=== PATIENT | male | born 1955 | race Caucasian/White ===

== ENCOUNTER 2019-10-14 12:32 | Observation (INO) | payer OTHER ==
[~2019-10-14] VITALS: Ht 190.5 cm; Wt 96.2 kg
[~2019-10-14 12:32] MED LIST: DAYPRO600 M1 PO; ROBAXIN750 MG PO
[2019-10-14 12:56] LABS: BASO % 0.6 % (0.0-1.0); EOS # 0.1 10*3/uL (0.0-0.4); EOS % 1.1 % (1.0-4.0); LYMPH # 2.8 10*3/uL (1.3-4.4); LYMPH % 39.7 % (27.0-41.0); MEAN CELL VOLUME 95.3 fl (80.0-94.0); MEAN CORPUSCULAR HGB 31.6 pg (27.0-31.0); MEAN CORPUSCULAR HGB CONC 33.1 g/dl (33.0-37.0); MEAN PLATELET VOLUME 9.4 fl (9.6-12.3); MONO # 0.5 10*3/uL (0.1-1.0); MONO % 7.1 % (3.0-9.0); NEUT # 3.6 10*3/uL (2.3-7.9); NEUT % 51.2 % (47.0-73.0); PLATELET COUNT AUTOMATED 255 10*3/uL (130-400); RED BLOOD COUNT 4.72 10*6/uL (4.50-5.90); RED CELL DISTRI WIDTH 13.3 % (0-14.5); WHITE BLOOD COUNT 7.1 10*3/uL (4.8-10.8)
[2019-10-14 13:07] LABS: ACT PARTIAL THROMBO TIME 25.3 SECONDS (20.0-32.1)
[2019-10-14 13:13] LABS: ALBUMIN 3.8 gm/dl (3.1-4.5); ALKALINE PHOSPHATASE 59 U/L (45-117); BUN 17 mg/dl (7-24); CHLORIDE 106 mmol/L (98-107); CREATININE 1.12 mg/dL (0.70-1.30); POTASSIUM 4.5 mmol/L (3.5-5.1); SGOT/AST 10 IU/L (3-35); SGPT/ALT 22 U/L (12-78); SODIUM 139 mmol/L (136-145); TOTAL PROTEIN 7.2 gm/dL (6.4-8.2)
[2019-10-14 13:24] LABS: TROPONIN I < 0.015 ng/ml (<0.045)
[2019-10-14] MEDS ORDERED: SEROQUEL XR150 MG PO (14:05)
[2019-10-14] MEDS ORDERED: CYMBALTA30 MG PO (14:06)
[2019-10-14 14:10] VITALS: BP 120/84
[2019-10-14] MEDS ORDERED: SEROQUEL50 MG PO (14:44)
[2019-10-14 16:08] VITALS: BP 124/81
--- NOTE | 2019-10-14 16:09 | NUR ---
PT RESTING IN BED NO CHANGE IN PAIN STATUS
[2019-10-14 16:31] VITALS: BP 131/89
--- NOTE | 2019-10-14 16:51 | NUR ---
A 64, admitted to , under the services of TA Beasley DO with a diagnosis of . Chief complaint is CHEST PAIN. Patient arrived via ambulatory from ER. Monitor applied. Initial assessment completed. Vital signs taken and recorded. TA BEASLEY DO notified of admission to the unit. Orders received. See assessment for past medical history, medications and allergies. Patient and/or family oriented to unit. [facility]. Clothing/patient valuable form completed. CANDACE SILVA
--- NOTE | 2019-10-14 17:30 | NUR ---
SPOKE WITH CARDIOLOGY ANSWERING SERVICE REGARDING CONSULT.
--- NOTE | 2019-10-14 19:44 | NUR ---
PT AWAKE IN BED WATCHING TV. PT STATES HE IS STILL HAVING A DULL ACHE IN L SIDE OF CHEST WHICH HE RATES 3/10. DENIES ANY NEEDS FOR PAIN MEDICATION AT THIS TIME. RN DISCUSSED PLAN OF CARE AND NPO STATUS AFTER MIDNIGHT. PT AWARE NO TESTING YET ORDERED, BUT THIS IS A JUST IN CASE PRECAUTION. PT VERBALIZES UNDERSTANDING. PT STATES HE IS STILL WAITING ON HIS DINNER THAT HE ORDERED. WILL CALL DIETARY TO RETRIEVE FOOD. PT DENIES ANY OTHER NEEDS.
[2019-10-14 20:00] VITALS: BP 129/92
--- NOTE | 2019-10-14 20:14 | NUR ---
FINALLY GOT AHOLD OF DIETARY. AWARE OF INCIDENT. REPLACEMENT COLD CUT TRAY ORDERED.
--- NOTE | 2019-10-14 21:20 | NUR ---
AWARE OF MED REC UP TO DATE.
[2019-10-15] VITALS: BP 129/78
[2019-10-15 06:25] LABS: BASO % 0.5 % (0.0-1.0); EOS # 0.1 10*3/uL (0.0-0.4); EOS % 1.8 % (1.0-4.0); HEMATOCRIT 43.2 % (42.0-52.0); LYMPH # 2.9 10*3/uL (1.3-4.4); LYMPH % 43.6 % (27.0-41.0); MEAN CELL VOLUME 95.2 fl (80.0-94.0); MEAN CORPUSCULAR HGB 32.2 pg (27.0-31.0); MEAN CORPUSCULAR HGB CONC 33.8 g/dl (33.0-37.0); MEAN PLATELET VOLUME 9.6 fl (9.6-12.3); MONO # 0.6 10*3/uL (0.1-1.0); MONO % 9.4 % (3.0-9.0); NEUT % 44.4 % (47.0-73.0); PLATELET COUNT AUTOMATED 238 10*3/uL (130-400); RED BLOOD COUNT 4.54 10*6/uL (4.50-5.90); RED CELL DISTRI WIDTH 13.4 % (0-14.5); WHITE BLOOD COUNT 6.6 10*3/uL (4.8-10.8)
[2019-10-15 06:44] LABS: ALBUMIN 3.4 gm/dl (3.1-4.5); BUN 18 mg/dl (7-24); CHLORIDE 107 mmol/L (98-107); CREATININE 1.02 mg/dL (0.70-1.30); HDL CHOLESTEROL 51 mg/dl (40-60); POTASSIUM 4.2 mmol/L (3.5-5.1); SGOT/AST 11 IU/L (3-35); SODIUM 140 mmol/L (136-145); TRIGLYCERIDES 208 mg/dl (<150); VLDL CHOLESTEROL 42 mg/dL (6-40)
[2019-10-15 06:50] LABS: ALKALINE PHOSPHATASE 52 U/L (45-117); CHOLESTEROL 265 mg/dL (<200); FREE T4 1.03 ng/dl (0.76-1.46); LDL CHOLESTEROL 172 mg/dL (9-159); SGPT/ALT 25 U/L (12-78); TOTAL PROTEIN 6.6 gm/dL (6.4-8.2)
[2019-10-15 07:15] LABS: VITAMIN D, 25-HYDROXY 38.3 ng/mL (30-100)
[2019-10-15 08:00] VITALS: BP 128/80
--- NOTE | 2019-10-15 08:00 | NUR ---
PATIENT RESTING IN BED ON ROOM AIR. C/O L ARM PRESSURE LSIDE CHEST INTO BACK.
--- NOTE | 2019-10-15 08:30 | NUR ---
MARCO HAS ROUNDED.
--- NOTE | 2019-10-15 09:00 | NUR ---
Hazard Mitigation Officer in to talk to patient. Patient states lives at home with . There are no steps in the home. Physician: frannie torres Pharmacy: none Home health services: none Patient's level of ADLs: INDEPENDENT Patient has working utilities: all working DME: none Follow-up physician's appointment after d/c: will be made by hospitalist nurse director upon discharge Does patient want to access PORTAL?: no Discharge plan discussed with patient, he states he lives at home with , he is independent in adls and ambulation, works, drives, he states he will return home when discharged and denies any home needs, family will transport upon discharge. FAMILIA ANAND
--- NOTE | 2019-10-15 11:23 | NUR ---
ENSEMBLE MEMBER HERE AND HAS ROUNDED ON PATIENT. PLAN FOR TRANSFER IN AM 8/13 FOR HEART CATH.
[2019-10-15] MEDS ORDERED: CLOPIDOGREL75 MG PO (11:54)
[2019-10-15] MEDS ORDERED: ATORVASTATIN CA80 M1 PO (11:54)
[2019-10-15] MEDS ORDERED: LOPRESSOR25 MG PO (11:54)
[2019-10-15 12:00] VITALS: BP 126/81
--- NOTE | 2019-10-15 12:15 | NUR ---
HEPARIN GTT STARTED PER PROTOCOL AND ORDER. PATIENT AWARE AND UNDERSTANDS TRANSFER IN MORNING.
--- NOTE | 2019-10-15 14:58 | NUR ---
MEDICATED WITH TYLENOL PER ORDER AND REQUEST FOR HEADACHE.
--- NOTE | 2019-10-15 15:30 | NUR ---
TYLENOL HELPED HEADACHE STILL HAS PRESSURE IN BACK L ARM.
[2019-10-15 16:00] VITALS: BP 117/85
--- NOTE | 2019-10-15 16:49 | NUR ---
MEDICATED WITH PRN MORPHINE PER ORDER AND REQUEST.
--- NOTE | 2019-10-15 18:50 | NUR ---
PTT IS 70, NO CHANGE PER PROTOCOL NEXT PTT 0630.
--- NOTE | 2019-10-15 19:35 | NUR ---
PT AWAKE SITTING UP IN BED TALKING ON PHONE. HEPARIN GTT INFUSING PER ORDER. DENIES ANY NEEDS. WILL MONITOR. CALL LIGHT IN REACH.
[2019-10-15 20:00] VITALS: BP 125/77
--- NOTE | 2019-10-15 21:47 | NUR ---
SCHEDULED MEDS GIVEN PER ORDER. [facility]
--- NOTE | 2019-10-15 23:25 | NUR ---
PO TYLENOL ADMINISTERED PER ORDER FOR C/O HEADACHE. WILL MONITOR. CALL LIGHT IN REACH.
[2019-10-16] VITALS: BP 120/79
--- NOTE | 2019-10-16 02:06 | NUR ---
PT ASLEEP IN BED. NO S/S OF DISTRESS NOTED.
--- NOTE | 2019-10-16 04:00 | NUR ---
PT ASLEEP IN BED. NO S/S OF DISTRESS NOTED. WILL MONITOR. CALL LIGHT IN REACH.
--- NOTE | 2019-10-16 05:40 | NUR ---
APTT 78.6. IV HEPARIN STOPPED FOR 1 HR PER POLICY. NOTIFIED OF RESULT. DISCHARGE PAPERS SIGNED/DISCUSSED WITH PATIENT. COPY OF MATERIALS GIVEN TO PATIENT.
--- NOTE | 2019-10-16 06:40 | NUR ---
IV HEPARIN GTT RESTARTED. RATE DECREASED BY 3 UNITS/KG/HR. NOW RUNNING AT 9 UNITS/KG/HR, OR 8.6 CC/HR. APTT ORDERED FOR 1140, ALTHOUGH PT WILL MOST LIKELY NOT BE HERE HE IS BEING TRANSFERRED TO [facility] [place] FOR HEART CATH.
--- NOTE | 2019-10-16 07:47 | NUR ---
PATIENT TO BE TRANSFERED TO [facility] FOR HEART CATH.
--- NOTE | 2019-10-16 08:50 | NUR ---
PATIENT TAKEN VIA AMBULANCE.
== END 2019-10-16 09:45 | disposition short-term general hospital (02) ==
LOC: ED 12:32 → EDHOLD 14:38 → 4E 14:48
PROVIDERS: Emergency Medicine; Registered Nurse; ADMIT Family Medicine
DX: R07.89 Other chest pain (principal); I21.4 Non-ST elevation (NSTEMI) myocardial infarction; R42 Dizziness and giddiness; R11.0 Nausea; R73.9 Hyperglycemia, unspecified; D75.89 Other specified diseases of blood and blood-forming organs; F43.10 Post-traumatic stress disorder, unspecified; E78.00 Pure hypercholesterolemia, unspecified

== ENCOUNTER → 2019-11-07 | Outpatient (CLI) | payer OTHER ==
[~2019-11-07] MED LIST changes: +ATORVASTATIN CA80 M1 PO; +CLOPIDOGREL75 MG PO; +CYMBALTA30 MG PO; +LOPRESSOR25 MG PO; +SEROQUEL XR150 MG PO; +SEROQUEL50 MG PO
== END | disposition home or self-care (01) ==
LOC: CT 12:29
PROVIDERS: ATTEND Nurse Practitioner Family
DX: I67.82 Cerebral ischemia (principal); G44.52 New daily persistent headache (NDPH); R42 Dizziness and giddiness

== ENCOUNTER → 2020-02-14 | Outpatient (CLI) | payer OTHER ==
[~2020-02-14] MED LIST changes: +ASPIRIN ADULT L81 M1 PO; +MIDODRINE HCL10 MG PO; +XARE20MG PO
== END | disposition home or self-care (01) ==
LOC: COVID19 11:21
PROVIDERS: ATTEND Internal Medicine
DX: U07.1 COVID-19 (principal)

== ENCOUNTER 2020-02-22 09:47 | Inpatient (IN) | payer OTHER ==
[~2020-02-22] VITALS: Ht 188 cm; Wt 97.1 kg
[~2020-02-22 09:47] MED LIST changes: -ASPIRIN ADULT L81 M1 PO; -MIDODRINE HCL10 MG PO; -XARE20MG PO
[2020-02-22 09:57] VITALS: BP 101/53
[2020-02-22 10:43] LABS: HEMATOCRIT 38.2 % (42.0-52.0); LYMPH # 1.4 10*3/uL (1.3-4.4); LYMPH % 22.4 % (27.0-41.0); MEAN CELL VOLUME 91.6 fl (80.0-94.0); MEAN CORPUSCULAR HGB 31.2 pg (27.0-31.0); MEAN PLATELET VOLUME 10.5 fl (9.6-12.3); MONO # 0.4 10*3/uL (0.1-1.0); MONO % 6.1 % (3.0-9.0); NEUT # 4.5 10*3/uL (2.3-7.9); NEUT % 70.9 % (47.0-73.0); PLATELET COUNT AUTOMATED 274 10*3/uL (130-400); RED BLOOD COUNT 4.17 10*6/uL (4.50-5.90); RED CELL DISTRI WIDTH 12.6 % (0-14.5); WHITE BLOOD COUNT 6.4 10*3/uL (4.8-10.8)
[2020-02-22 10:59] LABS: ACT PARTIAL THROMBO TIME 32.4 SECONDS (20.0-32.1)
[2020-02-22 11:01] LABS: ALKALINE PHOSPHATASE 124 U/L (45-117); BUN 12 mg/dl (7-24); CHLORIDE 100 mmol/L (98-107); CPK 126 U/L (39-308); CREATININE 1.13 mg/dL (0.70-1.30); LDH 395 U/L (87-241); POTASSIUM 3.9 mmol/L (3.5-5.1); SGOT/AST 55 IU/L (3-35); SGPT/ALT 68 U/L (12-78); SODIUM 131 mmol/L (136-145)
[2020-02-22 11:02] LABS: TROPONIN I < 0.015 ng/ml (<0.045)
[2020-02-22 11:16] VITALS: BP 112/67
[2020-02-22 11:35] LABS: ABG BASE EXCESS 1.7 mmol/L (-2.0-2.0); ARTERIAL BLOOD GAS PH 7.459 (7.35-7.45)
[2020-02-22] MEDS ORDERED: MIDODRINE HCL10 MG PO (11:39)
[2020-02-22] MEDS ORDERED: ASPIRIN ADULT L81 M1 PO (11:42)
[2020-02-22 13:14] LABS: BILIRUBIN Negative (Negative); BLOOD Negative (Negative); CLARITY Cloudy (Clear); COLOR Yellow (Yellow); GLUCOSE Negative (Negative); KETONE Trace (Negative); LEUKO ESTERASE Negative (Negative); NITRITE Negative (Negative); SPECIFIC GRAVITY 1.015 (1.001-1.030); UROBILINOGEN 0.2 E.U./dl (0.0-1.0)
--- NOTE | 2020-02-22 13:36 | NUR ---
PT PROVIDED A LUNCH TRAY AND WATHING T.V PT W/SAFETY PRECAUTIONS INTACT AND CALL LIGHT WITHIN REACH,NO ADDITIONAL COMPLAINTS VOICED.
[2020-02-22 13:39] VITALS: BP 117/69
[2020-02-22 13:41] LABS: BACTERIA TRACE
--- NOTE | 2020-02-22 13:52 | NUR ---
DR. BROWNING IN TO EXAM ROOM 2013 TO EVALUATE PT @ THIS TIME.
[2020-02-22 14:30] VITALS: BP 144/66
--- NOTE | 2020-02-22 14:30 | NUR ---
A 64, admitted to , under the services of ARACELI Sebastian DO with a diagnosis of COVID-19, RESPIRATORY FAILURE. Chief complaint is SHORTNESS OF BREATH, DIZZINESS, LIGHTHEADED. Patient arrived via bed from ER. Monitor applied. Initial assessment completed. Vital signs taken and recorded. ARACELI SEBASTIAN DO notified of admission to the unit. Orders received. See assessment for past medical history, medications and allergies. Patient and/or family oriented to unit. [facility]. Clothing/patient valuable form completed. GOKUL MENDENHALL
[2020-02-22 16:00] VITALS: BP 144/66
--- NOTE | 2020-02-22 17:20 | NUR ---
PATIENT REMOVED OXYGEN TO USE BATHROOM. CHECKED POX ON ROOM AIR AFTER AMBULATING AND IT IS 83%. EDUCATED ON PATIENT IMPORTANCE OF WEARING OXYGEN AT ALL TIMES RIGHT NOW BECAUSE OF HYPOXIA.
[2020-02-22 20:00] VITALS: BP 131/68
--- NOTE | 2020-02-22 22:55 | NUR ---
Pt cannot tolerate the BiPap at all. Anxiety of the machines function. Made it unbearable to him. Pt set up with a high flow NC on 8L. SPO2 94%. Nurse aware.
[2020-02-23] VITALS: BP 110/52
--- NOTE | 2020-02-23 00:47 | NUR ---
SLEEPING, AWAKES EASILY. LYING ON RIGHT SIDE. DENIES SHORTNESS OF BREATH. NC 8L.
[2020-02-23 06:36] LABS: FREE T4 1.21 ng/dl (0.76-1.46)
[2020-02-23 06:42] LABS: THYROID STIM HORMONE (HS) 0.867 uIU/ml (0.358-4.75)
[2020-02-23 07:29] LABS: VITAMIN D, 25-HYDROXY 51.1 ng/mL (30-100)
[2020-02-23 08:00] VITALS: BP 108/56
--- NOTE | 2020-02-23 08:00 | NUR ---
PT AWAKE, ALERT AND ORIENTED. NO STATED COMPLAINTS AT THIS TIME. PT DENIES PAIN. NO SOB NOTED AT REST. NO S/S OF DISTRESS NOTED. PT CAN REPOSITION SELF AND IS ENCOURAGED TO DO SO. EDUCATION PROVIDED REGARDING SELF PRONING. BED IN LOWEST LOCKED POSITION, CALL LIGHT WITHIN REACH. WILL CONTINUE TO MONITOR.
[2020-02-23 08:02] LABS: ACT PARTIAL THROMBO TIME 27.6 SECONDS (20.0-32.1); INTERNATIONAL NORM RATIO 0.9 (2.0-3.5)
--- NOTE | 2020-02-23 08:23 | NUR ---
Dairy Laboratory Technician in to talk to patient. Patient states lives at HOME with /SON. There are 12 steps in the home. Physician: LYNNE CARABALLO [facility]acy: [facility] health services: NONE Patient's level of ADLs: INDEPENDENT Patient has working utilities: YES DME: NONE Follow-up physician's appointment after d/c: WILL BE MADE BY RN HOSPITALIST COORDINATOR AT DISCHARGE. Does patient want to access PORTAL?: NO Discharge plan : PATIENT STATES HE RESIDES AT HOME WITH AND SON. PATIENT STATES HE IS INDEPENDENT IN ADLS/IADLS. PATIENT DRIVES AND WORKS. PATIENT HAS NO OXYGEN AT HOME AND IS ON 8L OXYGEN IN THIS FACILITY. PATIENT STATES AT DISCHARGE HE WILL RETURN HOME. GIANCARLO LANDA
--- NOTE | 2020-02-23 08:50 | NUR ---
PATIENT STATES HE IS UNABLE TO WEAR BIPAP, ENCOURAGED PATIENT TO SELF PRONE MUCH POSSIBLE.
[2020-02-23 09:06] LABS: ABG BASE EXCESS 1.9 mmol/L (-2.0-2.0); ARTERIAL BLOOD GAS PH 7.472 (7.35-7.45)
[2020-02-23 12:00] VITALS: BP 106/62
--- NOTE | 2020-02-23 12:20 | NUR ---
DR. MORE NOTIFIED OF CONSULT
[2020-02-23 16:00] VITALS: BP 104/55
--- NOTE | 2020-02-23 16:28 | NUR ---
PATIENT DESATURATING TO MID 80S. HI BELL NC INCREASED TO 10 L, SPO2 91%. PATIENT REFUSES TO WEAR BIPAP, UNIT PULLED FROM PATIENTS ROOM PER DR BROWNING'S ORDER. ENCOURAGED PATIENT TO SELF PRONE.
[2020-02-23 19:38] LABS: ABG BASE EXCESS 0.8 mmol/L (-2.0-2.0); ARTERIAL BLOOD GAS PH 7.454 (7.35-7.45)
[2020-02-23 20:00] VITALS: BP 106/51
--- NOTE | 2020-02-23 21:07 | NUR ---
DR BROWNING CALLED IN WANTING AN UPDATE ON PATIENT. MADE AWARE OF PATIENT BEING 91% ON 15LITERS AND PATIENT WAS ENCOURAGED TO PRONE. PATIENT NOW 95% ON [address] BROWNING STATES HE IS WORRIED ABOUT THIS PATIENT AND WANTS HIM TRANSFERRED TO THE ICU. NAOMI SITE SURVEYOR MADE AWARE.
--- NOTE | 2020-02-23 23:45 | NUR ---
STILL WAITING FOR AVAILABILITY FOR TRANSFER TO [facility]
--- NOTE | 2020-02-23 23:55 | NUR ---
PATIENT TRANSFERRED TO [facility] AT THIS TIME
[2020-02-24] VITALS: BP 93/72
--- NOTE | 2020-02-24 00:16 | NUR ---
PT. RECEIVED FROM , VS STABLE. TEMP [id number], 93/72. PT. WARM AND DRY AND ALERT AND ORIENTED x3, PLEASANT AND COOPERATIVE. JOVITA ZAVALA RN
--- NOTE | 2020-02-24 01:05 | NUR ---
PT. REFUSING TO WEAR BIPAP. RESP UP TO TRY BIPAP ON PATIENT, PT. STATED HE WOULD NOT WEAR IT AND TO TAKE IT OUT OF ROOM. ATTEMPTED TO EXPLAIN NEED TO WEAR BIPAP, PT. REMAINS ON 15L HFNC. JOVITA ZAVALA RN
[2020-02-24 04:00] VITALS: BP 100/52
[2020-02-24 06:50] LABS: BASO % 0.2 % (0.0-1.0); HEMATOCRIT 37.9 % (42.0-52.0); LYMPH # 1.7 10*3/uL (1.3-4.4); LYMPH % 13.5 % (27.0-41.0); MEAN CORPUSCULAR HGB 31.5 pg (27.0-31.0); MEAN CORPUSCULAR HGB CONC 33.5 g/dl (33.0-37.0); MEAN PLATELET VOLUME 10.3 fl (9.6-12.3); MONO # 0.6 10*3/uL (0.1-1.0); MONO % 4.7 % (3.0-9.0); NEUT # 10.2 10*3/uL (2.3-7.9); NEUT % 80.8 % (47.0-73.0); RED BLOOD COUNT 4.03 10*6/uL (4.50-5.90); RED CELL DISTRI WIDTH 12.9 % (0-14.5); WHITE BLOOD COUNT 12.6 10*3/uL (4.8-10.8)
[2020-02-24 07:00] LABS: ALBUMIN 2.7 gm/dl (3.1-4.5); BUN 18 mg/dl (7-24); CHLORIDE 102 mmol/L (98-107); CREATININE 0.93 mg/dL (0.70-1.30); POTASSIUM 4.4 mmol/L (3.5-5.1); SGOT/AST 222 IU/L (3-35); SGPT/ALT 251 U/L (12-78); SODIUM 136 mmol/L (136-145)
[2020-02-24 07:03] LABS: ALKALINE PHOSPHATASE 219 U/L (45-117); LDH 537 U/L (87-241)
[2020-02-24 07:05] LABS: PLATELET COUNT AUTOMATED 392 10*3/uL (130-400)
[2020-02-24 07:15] LABS: CPK 93 U/L (39-308)
[2020-02-24 08:00] VITALS: BP 108/68
[2020-02-24 09:31] LABS: ABG BASE EXCESS 2.2 mmol/L (-2.0-2.0); ARTERIAL BLOOD GAS PH 7.473 (7.35-7.45)
--- NOTE | 2020-02-24 10:21 | NUR ---
MEDICATED WITH TYLENOL FOR COMPLAINTS OF A HEADACHE AT THIS TIME. RN WILL MONITOR FOR EFFECTIVENESS
--- NOTE | 2020-02-24 11:33 | NUR ---
DR BROWNING IN TO SEE PATIENT, CARE DISCUSSED WITH
[2020-02-24 12:00] VITALS: BP 116/73
--- NOTE | 2020-02-24 13:40 | NUR ---
PATIENT AGREED TO BIPAP AFTER RECIEVEING ATIVAN TO HELP HIM RELAX. ABG TO BE DRAWN IN 2 HOURS
--- NOTE | 2020-02-24 14:20 | NUR ---
PATIENT HAS RIPPED OFF BIPAP AND IS STANDING AT THE SIDE OF THE BED URINATING ON THE FLOOR. PATIENT ASSISTED BACK TO BED. REFUSING TO PUT BIPAP BACK ONN. RN WILL CONTINUE TO MONITOR
--- NOTE | 2020-02-24 15:42 | NUR ---
PLACED PT ON BIPAP 16/12//50%. PT TOLERATED WELL. SPO2 95%, HR 70, RR 12
[2020-02-24 16:00] VITALS: BP 117/76
--- NOTE | 2020-02-24 17:00 | NUR ---
PATIENT PLACED ON BIPAP PER REQUEST. RN WILL CONTINUE TO MONITOR
--- NOTE | 2020-02-24 17:55 | NUR ---
placed pt back on bipap. tolerating well, spo2 97%
[2020-02-24 20:00] VITALS: BP 100/66
--- NOTE | 2020-02-24 21:20 | NUR ---
Patient states he can wear the bipap if he had ativan like he did this afternoon. Spoke with Dr. Ramesh and a new order was received for 0.5 of ativan.
--- NOTE | 2020-02-24 21:45 | NUR ---
Patient given ativan and placed on bipap. Will monitor.
--- NOTE | 2020-02-24 22:56 | NUR ---
Patient has been resting on bipap with no signs of distress. Will continue to monitor.
[2020-02-25] VITALS: BP 110/70
--- NOTE | 2020-02-25 | NUR ---
Patient pulled off bipap and stated hes done wearing it for the night. Educated patient on wearing it, and he insists that he is not wearing the rest of the night. Patient placed back on 15L high flow nasal cannula.
[2020-02-25 04:00] VITALS: BP 95/58
--- NOTE | 2020-02-25 04:20 | NUR ---
Critical lab result called to Dr. Luciano. Awaiting new orders.
[2020-02-25 06:08] LABS: ALBUMIN 2.8 gm/dl (3.1-4.5); BUN 24 mg/dl (7-24); CHLORIDE 105 mmol/L (98-107); CREATININE 0.98 mg/dL (0.70-1.30); POTASSIUM 4.6 mmol/L (3.5-5.1); SGOT/AST 188 IU/L (3-35); SGPT/ALT 368 U/L (12-78); SODIUM 136 mmol/L (136-145); TOTAL PROTEIN 7.2 gm/dL (6.4-8.2)
[2020-02-25 06:13] LABS: ALKALINE PHOSPHATASE 274 U/L (45-117); LDH 484 U/L (87-241)
[2020-02-25 06:18] LABS: CPK 53 U/L (39-308)
[2020-02-25 06:24] LABS: BASO % 0.2 % (0.0-1.0); HEMATOCRIT 39.1 % (42.0-52.0); LYMPH # 1.4 10*3/uL (1.3-4.4); LYMPH % 14.4 % (27.0-41.0); MEAN CELL VOLUME 93.3 fl (80.0-94.0); MEAN CORPUSCULAR HGB 30.8 pg (27.0-31.0); MEAN PLATELET VOLUME 10.2 fl (9.6-12.3); MONO # 0.5 10*3/uL (0.1-1.0); MONO % 5.3 % (3.0-9.0); NEUT # 7.8 10*3/uL (2.3-7.9); NEUT % 79.3 % (47.0-73.0); PLATELET COUNT AUTOMATED 457 10*3/uL (130-400); RED BLOOD COUNT 4.19 10*6/uL (4.50-5.90); WHITE BLOOD COUNT 9.8 10*3/uL (4.8-10.8)
[2020-02-25 08:00] VITALS: BP 104/61
[2020-02-25 09:00] LABS: ABG BASE EXCESS 2.4 mmol/L (-2.0-2.0); ARTERIAL BLOOD GAS PH 7.455 (7.35-7.45)
[2020-02-25 12:00] VITALS: BP 105/71
--- NOTE | 2020-02-25 12:35 | NUR ---
DR. Villalpando in to [facility].
--- NOTE | 2020-02-25 12:36 | NUR ---
dr. Ramesh in to [facility].
[2020-02-25 16:00] VITALS: BP 114/66
[2020-02-25 20:00] VITALS: BP 109/56
[2020-02-26] VITALS: BP 135/78
[2020-02-26 04:00] VITALS: BP 109/59
[2020-02-26 06:09] LABS: ALBUMIN 2.5 gm/dl (3.1-4.5); BUN 20 mg/dl (7-24); CHLORIDE 106 mmol/L (98-107); CREATININE 0.87 mg/dL (0.70-1.30); LDH 386 U/L (87-241); POTASSIUM 4.2 mmol/L (3.5-5.1); SGOT/AST 70 IU/L (3-35); SGPT/ALT 231 U/L (12-78); SODIUM 137 mmol/L (136-145); TOTAL PROTEIN 6.1 gm/dL (6.4-8.2)
[2020-02-26 06:10] LABS: ALKALINE PHOSPHATASE 208 U/L (45-117)
[2020-02-26 06:12] LABS: BASO % 0.3 % (0.0-1.0); CPK 39 U/L (39-308); EOS % 0.2 % (1.0-4.0); HEMATOCRIT 37.6 % (42.0-52.0); MEAN CELL VOLUME 92.4 fl (80.0-94.0); MEAN CORPUSCULAR HGB 30.7 pg (27.0-31.0); MEAN CORPUSCULAR HGB CONC 33.2 g/dl (33.0-37.0); MEAN PLATELET VOLUME 10.1 fl (9.6-12.3); MONO # 0.7 10*3/uL (0.1-1.0); MONO % 6.2 % (3.0-9.0); NEUT # 8.2 10*3/uL (2.3-7.9); NEUT % 73.8 % (47.0-73.0); PLATELET COUNT AUTOMATED 493 10*3/uL (130-400); RED BLOOD COUNT 4.07 10*6/uL (4.50-5.90); RED CELL DISTRI WIDTH 12.7 % (0-14.5)
[2020-02-26 08:00] VITALS: BP 109/59
[2020-02-26 08:23] LABS: ABG BASE EXCESS 3.4 mmol/L (-2.0-2.0); ARTERIAL BLOOD GAS PH 7.457 (7.35-7.45)
--- NOTE | 2020-02-26 10:30 | NUR ---
Requests O2 be decreased. HF to 10l.. SAT remaining 92-94%.
[2020-02-26 12:00] VITALS: BP 92/52
--- NOTE | 2020-02-26 13:12 | NUR ---
Dr. Ramesh in to [facility]. [place] for transfer to [facility] . dr. Vizcaino and agreeable to transfer to [facility]. Family called in and update was given.
--- NOTE | 2020-02-26 15:00 | NUR ---
ASSUMED CARE OF PT. PT VOICES NO COMPLAINTS. CALL LIGHT IN REACH
[2020-02-26 15:35] LABS: ABG BASE EXCESS 1.2 mmol/L (-2.0-2.0); ARTERIAL BLOOD GAS PH 7.443 (7.35-7.45)
[2020-02-26 16:00] VITALS: BP 106/57
--- NOTE | 2020-02-26 16:13 | NUR ---
Transferred to 420 via bed w/ belongings. Report given to brandon HIGGINBOTHAM. Medicated w/ tylenol prior to departure scale 06/12.
--- NOTE | 2020-02-26 17:00 | NUR ---
IN TO SEE PT. O2 INTACT. CALL LIGHT IN REACH
--- NOTE | 2020-02-26 19:00 | NUR ---
IN TO SEE PT. NO COMPLAINTS
[2020-02-26 20:00] VITALS: BP 139/93
--- NOTE | 2020-02-26 21:50 | NUR ---
PT REFUSING BIPAP. STATES "I HAVE PTSD. CANT DO IT."
--- NOTE | 2020-02-26 22:14 | NUR ---
NORCO GIVEN FOR 8 HEADACHE. WILL MONITOR
--- NOTE | 2020-02-26 23:10 | NUR ---
PER PT, NORCO EFFECTIVE
[2020-02-27] VITALS: BP 134/71
--- NOTE | 2020-02-27 | NUR ---
PT ASLEEP AT THIS TIME. O2 INTACT. SPO2 98% ON HFNC 12L. CALL LIGHT IN REACH
--- NOTE | 2020-02-27 04:07 | NUR ---
PATIENT IS STILL ADAMENTLY REFUSINGTO WHERE THE BIPAP, THE MACHINE WAS REMOVED FROM THE ROOM TO BE PLACED ON ANOTHER PATIENT. RN AWARE.
[2020-02-27 05:59] LABS: BASO % 0.2 % (0.0-1.0); HEMATOCRIT 39.1 % (42.0-52.0); LYMPH # 2.2 10*3/uL (1.3-4.4); LYMPH % 17.8 % (27.0-41.0); MEAN CELL VOLUME 92.9 fl (80.0-94.0); MEAN CORPUSCULAR HGB 31.4 pg (27.0-31.0); MEAN CORPUSCULAR HGB CONC 33.8 g/dl (33.0-37.0); MEAN PLATELET VOLUME 9.9 fl (9.6-12.3); MONO # 0.7 10*3/uL (0.1-1.0); NEUT # 9.1 10*3/uL (2.3-7.9); NEUT % 73.8 % (47.0-73.0); PLATELET COUNT AUTOMATED 507 10*3/uL (130-400); RED BLOOD COUNT 4.21 10*6/uL (4.50-5.90); RED CELL DISTRI WIDTH 12.7 % (0-14.5); WHITE BLOOD COUNT 12.3 10*3/uL (4.8-10.8)
[2020-02-27 06:28] LABS: ALBUMIN 2.5 gm/dl (3.1-4.5); BUN 24 mg/dl (7-24); CHLORIDE 104 mmol/L (98-107); CREATININE 0.89 mg/dL (0.70-1.30); LDH 342 U/L (87-241); POTASSIUM 4.4 mmol/L (3.5-5.1); SGOT/AST 68 IU/L (3-35); SGPT/ALT 235 U/L (12-78); SODIUM 137 mmol/L (136-145); TOTAL PROTEIN 6.1 gm/dL (6.4-8.2)
[2020-02-27 06:29] LABS: ALKALINE PHOSPHATASE 191 U/L (45-117); CPK 30 U/L (39-308)
[2020-02-27 07:59] LABS: ABG BASE EXCESS 3.3 mmol/L (-2.0-2.0); ARTERIAL BLOOD GAS PH 7.448 (7.35-7.45)
[2020-02-27 08:00] VITALS: BP 113/71
--- NOTE | 2020-02-27 11:30 | NUR ---
THIS NURSE FACE-TIMED AT THIS TIME.
--- NOTE | 2020-02-27 11:30 | NUR ---
THIS NURSE FACE-TIMED AT THIS TIME. SPOKE WITH PATIENT.
[2020-02-27 12:00] VITALS: BP 116/67
[2020-02-27 16:00] VITALS: BP 120/61
--- NOTE | 2020-02-27 16:26 | NUR ---
PT SELF-PRONED AT THIS TIME. POX 98% VIA 12L HIGH-FLOW. WILL CONTINUE TO MONITOR.
[2020-02-27 20:00] VITALS: BP 113/62
--- NOTE | 2020-02-27 20:10 | NUR ---
24 HR chart check completed.
--- NOTE | 2020-02-27 21:00 | NUR ---
AWAKE, RESTING IN BED WITH NO ACUTE DISTRESS NOTED. RESPIRATIONS EASY. LUNGS DIMINISHED. PULSE OX 96% 6L HIGH FLOW. CLAIMS NON-PROD COUGH. CALL LIGHT WITHIN REACH. NO VOICED COMPLAINTS
[2020-02-28] VITALS: BP 138/80
--- NOTE | 2020-02-28 | NUR ---
SLEEPING. NO DISTRESS NOTED. REFUSES BI-PAP. PULSE OX 98% 6L HIGH FLOW, CONT PULSE OX MAINTAINED. CALL LIGHT WITHIN REACH.
--- NOTE | 2020-02-28 04:00 | NUR ---
SLEEPING. RESPIRATIONS EASY. CONT PULSE OX MAINTAINED 98% 6L HIGH FLOW. CALL LIGHT WITHIN REACH
[2020-02-28 05:58] LABS: HEMATOCRIT 39.5 % (42.0-52.0); MEAN CELL VOLUME 94.5 fl (80.0-94.0); MEAN CORPUSCULAR HGB 31.3 pg (27.0-31.0); MEAN CORPUSCULAR HGB CONC 33.2 g/dl (33.0-37.0); MEAN PLATELET VOLUME 9.6 fl (9.6-12.3); PLATELET COUNT AUTOMATED 578 10*3/uL (130-400); RED BLOOD COUNT 4.18 10*6/uL (4.50-5.90); RED CELL DISTRI WIDTH 12.8 % (0-14.5); WHITE BLOOD COUNT 13.2 10*3/uL (4.8-10.8)
[2020-02-28 06:04] LABS: ALBUMIN 2.7 gm/dl (3.1-4.5); ALKALINE PHOSPHATASE 171 U/L (45-117); BUN 20 mg/dl (7-24); CHLORIDE 105 mmol/L (98-107); CPK 36 U/L (39-308); CREATININE 0.94 mg/dL (0.70-1.30); LDH 318 U/L (87-241); POTASSIUM 5.3 mmol/L (3.5-5.1); SGOT/AST 43 IU/L (3-35); SODIUM 137 mmol/L (136-145); TOTAL PROTEIN 6.3 gm/dL (6.4-8.2)
[2020-02-28 06:12] LABS: SGPT/ALT 183 U/L (12-78)
--- NOTE | 2020-02-28 06:15 | NUR ---
RESTED THROUGHOUT NIGHT WITH NO DISTRESS NOTED. RESPIRATIONS EASY. O2 AND CONT PULSE OX REMAIN IN USE. CALL LIGHT WITHIN REACH. NO VOICED COMPLAINTS THIS SHIFT
--- NOTE | 2020-02-28 06:20 | NUR ---
DR GRIFFITH INFORMED OF CRITICAL LACTIC 2.4
--- NOTE | 2020-02-28 06:30 | NUR ---
AWAKE, DENIES SOB. PULSE OX 98% 10L HIGH FLOW WITH CONT PULSE OX MAINTAINED. CALL LIGHT WITHIN REACH. NO VOICED COMPLAINTS
[2020-02-28 08:00] VITALS: BP 133/53
[2020-02-28 08:12] LABS: ATYPICAL LYMPHS 3 % (0-0); PLATELET SUFFICIENCY HIGH (NORMAL); TOTAL CELLS COUNTED 100 #CELLS
[2020-02-28 12:00] VITALS: BP 109/69
[2020-02-28 16:00] VITALS: BP 103/64
[2020-02-28 16:42] LABS: ARTERIAL BLOOD GAS PH 7.415 (7.35-7.45)
[2020-02-28 20:00] VITALS: BP 109/51
--- NOTE | 2020-02-28 20:05 | NUR ---
PT RESTING IN BED ON RIGHT SIDE. RESP-EASY AND REGULAR. OXYGEN IN USE. NO C/O AT THIS TIME. CALL LIGHT IN REACH. SEE SHFIT ASSESSMENT.
--- NOTE | 2020-02-28 22:25 | NUR ---
CALLED DR. WHITNEY MADE AWARE PT REQUESTING SOMETHING FOR INDIGESTION. ORDER TAKEN AND REVIEWED.
--- NOTE | 2020-02-28 22:25 | NUR ---
MEDICATED WITH PROTONIX PO FOR C/O INDIGESTION. SEE EMAR. CALL LIGHT IN REACH. WILL CON'T TO MONITOR.
[2020-02-29] VITALS: BP 120/82
--- NOTE | 2020-02-29 | NUR ---
SLEEPING IN BED. RESP-EASY AND REGULAR. OXYGEN IN USE. CALL LIGHT IN REACH.
--- NOTE | 2020-02-29 06:00 | NUR ---
TOLERATED ROUTINE MED WITH NO PROBLEM. NO C/O AT THIS TIME. CALL LIGHT IN REACH. OXYGEN IN USE.
[2020-02-29 06:40] LABS: ALBUMIN 2.6 gm/dl (3.1-4.5); ALKALINE PHOSPHATASE 145 U/L (45-117); BUN 21 mg/dl (7-24); CHLORIDE 105 mmol/L (98-107); CPK 29 U/L (39-308); CREATININE 0.96 mg/dL (0.70-1.30); LDH 296 U/L (87-241); POTASSIUM 4.4 mmol/L (3.5-5.1); SGOT/AST 38 IU/L (3-35); SGPT/ALT 147 U/L (12-78); SODIUM 139 mmol/L (136-145); TOTAL PROTEIN 5.9 gm/dL (6.4-8.2)
[2020-02-29 07:27] LABS: HEMATOCRIT 38.3 % (42.0-52.0); MEAN CELL VOLUME 94.3 fl (80.0-94.0); MEAN CORPUSCULAR HGB CONC 32.9 g/dl (33.0-37.0); MEAN PLATELET VOLUME 9.8 fl (9.6-12.3); PLATELET COUNT AUTOMATED 559 10*3/uL (130-400); RED BLOOD COUNT 4.06 10*6/uL (4.50-5.90); WHITE BLOOD COUNT 11.8 10*3/uL (4.8-10.8)
[2020-02-29 08:00] VITALS: BP 103/51
[2020-02-29 09:29] LABS: PLATELET SUFFICIENCY HIGH (NORMAL); TOTAL CELLS COUNTED 100 #CELLS
[2020-02-29 12:00] VITALS: BP 92/51
[2020-02-29 16:00] VITALS: BP 118/64
[2020-02-29 20:00] VITALS: BP 111/63
[2020-03-01] VITALS: BP 126/79
[2020-03-01 06:27] LABS: HEMATOCRIT 37.9 % (42.0-52.0); MEAN CELL VOLUME 92.7 fl (80.0-94.0); MEAN CORPUSCULAR HGB 30.8 pg (27.0-31.0); MEAN CORPUSCULAR HGB CONC 33.2 g/dl (33.0-37.0); MEAN PLATELET VOLUME 9.6 fl (9.6-12.3); PLATELET COUNT AUTOMATED 547 10*3/uL (130-400); RED BLOOD COUNT 4.09 10*6/uL (4.50-5.90); RED CELL DISTRI WIDTH 12.6 % (0-14.5); WHITE BLOOD COUNT 15.2 10*3/uL (4.8-10.8)
[2020-03-01 06:38] LABS: ALBUMIN 2.7 gm/dl (3.1-4.5); ALKALINE PHOSPHATASE 132 U/L (45-117); BUN 21 mg/dl (7-24); CHLORIDE 102 mmol/L (98-107); CREATININE 0.92 mg/dL (0.70-1.30); LDH 269 U/L (87-241); POTASSIUM 4.2 mmol/L (3.5-5.1); SGOT/AST 37 IU/L (3-35); SGPT/ALT 135 U/L (12-78); SODIUM 137 mmol/L (136-145)
--- NOTE | 2020-03-01 06:51 | NUR ---
NOTIFIED OF LACTIC 2.3. NO NEW ORDERS.
[2020-03-01 07:28] LABS: TOTAL CELLS COUNTED 100 #CELLS
[2020-03-01 07:29] LABS: PLATELET SUFFICIENCY HIGH (NORMAL)
[2020-03-01 08:00] VITALS: BP 105/67
--- NOTE | 2020-03-01 08:00 | NUR ---
IN TO ROOM. PATIENT AWAKE, ALERT AND ORIENTED. NO STATED COMPLAINTS AT THIS TIME. PT STATES HE FEELS MUCH BETTER AND IS READY TO GO HOME. 6L NASAL CANNULA INTACT, NO SOB NOTED AT REST. RESPIRATIONS ARE EASY AND REGULAR. BED IN LOWEST LOCKED POSITION AND CALL LIGHT WITHIN REACH. PT ABLE TO REPOSITION SELF AND IS ENCOURAGED TO DO SO. WILL CONTINUE TO MONITOR.
--- NOTE | 2020-03-01 09:36 | NUR ---
LINEWORKER SPOKE WITH THIS PATIENT VIA PHONE CALL. PATIENT CONFIRMED WHEN DISCHARGED HE WILL BE RETURNING HOME. PATIENT IS STILL ON 6L OXYGEN AND DOES NOT HAVE ANY AT HOME. IF PATIENT NEEDS XARELTO, HE WILL NEED HIS SCRIPT SENT TO [facility]. RN HOSPITALIST COORDINATOR GREGOR HAS BEEN INFORMED OF THIS NEED.
[2020-03-01 12:00] VITALS: BP 119/73
[2020-03-01 16:00] VITALS: BP 110/65
[2020-03-01 18:00] VITALS: BP 110/65
[2020-03-02] VITALS: BP 129/80
[2020-03-02 07:48] LABS: HEMATOCRIT 38.5 % (42.0-52.0); MEAN CELL VOLUME 92.8 fl (80.0-94.0); MEAN CORPUSCULAR HGB 30.6 pg (27.0-31.0); MEAN PLATELET VOLUME 9.4 fl (9.6-12.3); PLATELET COUNT AUTOMATED 510 10*3/uL (130-400); RED BLOOD COUNT 4.15 10*6/uL (4.50-5.90); RED CELL DISTRI WIDTH 12.9 % (0-14.5); WHITE BLOOD COUNT 13.6 10*3/uL (4.8-10.8)
[2020-03-02 08:00] VITALS: BP 102/73
[2020-03-02 08:20] LABS: ALBUMIN 2.7 gm/dl (3.1-4.5); BUN 18 mg/dl (7-24); CHLORIDE 103 mmol/L (98-107); CREATININE 0.92 mg/dL (0.70-1.30); LDH 230 U/L (87-241); POTASSIUM 4.1 mmol/L (3.5-5.1); SGOT/AST 40 IU/L (3-35); SGPT/ALT 141 U/L (12-78); SODIUM 138 mmol/L (136-145)
[2020-03-02 08:21] LABS: ALKALINE PHOSPHATASE 118 U/L (45-117)
[2020-03-02 08:30] LABS: BURR CELLS FEW; PLATELET SUFFICIENCY HIGH (NORMAL); TOTAL CELLS COUNTED 100 #CELLS
--- NOTE | 2020-03-02 10:15 | NUR ---
HOME O2 ASSESSMENT: PRE BP: 102/73, HR 90, RR 18, PULSE OX 94% ON ROOM AIR AT REST. AMBULATED PATIENT IN ROOM, PULSE OX 95% ON ROOM AIR WHILE AMBULATING. NO DISTRESS NOTED. POST BP: 101/54, HR 92, RR 18, PULSE OX 95% ON ROOM AIR AT REST. PATIENT DOES NOT QUALIFY FOR HOME O2.
[2020-03-02 12:00] VITALS: BP 92/58
[2020-03-02] MEDS ORDERED: XARE20MG PO (12:23)
--- NOTE | 2020-03-02 14:17 | NUR ---
[employer] RECEIVED CALL FROM [employer] STATING THIS PATIENT NEEDED TRANSPORTATION. [employer] ATTEMPTED TO CALL INSURANCE, GOT DISCONNECT. [employer] CALLED AGAIN AND WAS TOLD THIS PATIENTS POLICY IS NOT IN THERE SYSTEM. [employer] CONTACTED [facility]SPORT[facility], THEY COULD NOT FIND POLICY EITHER. [employer] SPOKE WITH DIRECTOR LENIN, SHE GAVE OKAY FOR TAXI. [employer] CONTACTED [facility]. THEY WILL BE BILLING HOSPITAL $24.73 AND WILL CALL RN STATION WHEN THEY ARRIVE WHICH WILL BE APPROXIMATELY 3PM TODAY. FABRICIO LAWRENCE IS AWARE.
--- NOTE | 2020-03-02 14:51 | NUR ---
PATIENT DISCHARGE INSTRUCTIONS REVIEWED. HEP LOCK AND ASSISTANT EXECUTIVE HOUSEKEEPER DISCONTINUED.
[2020-03-04 11:07] LABS: ORGANISM ID Final report (.); RESULT 1 Gram negative rods (.)
== END 2020-03-02 14:51 | disposition home or self-care (01) | DRG 177 ==
LOC: ED 09:47 → 4E 11:23 → EDHOLD 11:23 → 4E 13:37 → ICCU 02-23 23:55 → 4E 02-26 17:11
PROVIDERS: Emergency Medicine; Family Medicine; Hospitalist; Internal Medicine Critical Care Medicine; ADMIT Emergency Medicine; ATTEND Emergency Medicine
PROC: 5A0935A Assistance with Respiratory Ventilation, Less than 24 Consecutive Hours, High Flow/Velocity Cannula (ICD-10-PCS; 2020-02-22)
PROC: XW033E5 Introduction of Remdesivir Anti-infective into Peripheral Vein, Percutaneous Approach, New Technology Group 5 (ICD-10-PCS; principal; 2020-02-23)
PROC: 5A0935A Assistance with Respiratory Ventilation, Less than 24 Consecutive Hours, High Flow/Velocity Cannula (ICD-10-PCS; 2020-02-24)
PROC: 5A09357 Assistance with Respiratory Ventilation, Less than 24 Consecutive Hours, Continuous Positive Airway Pressure (ICD-10-PCS; 2020-02-24)
PROC: 5A0945A Assistance with Respiratory Ventilation, 24-96 Consecutive Hours, High Flow/Velocity Cannula (ICD-10-PCS; 2020-02-26)
DX: U07.1 COVID-19 (principal); J96.01 Acute respiratory failure with hypoxia; E44.0 Moderate protein-calorie malnutrition; E87.1 Hypo-osmolality and hyponatremia; D68.59 Other primary thrombophilia; E83.41 Hypermagnesemia; F43.10 Post-traumatic stress disorder, unspecified; E78.00 Pure hypercholesterolemia, unspecified; D64.9 Anemia, unspecified; R73.9 Hyperglycemia, unspecified; R74.01 Elevation of levels of liver transaminase levels; D47.3 Essential (hemorrhagic) thrombocythemia; F41.1 Generalized anxiety disorder; Z82.3 Family history of stroke; Z82.49 Family history of ischemic heart disease and other diseases of the circulatory system; Z83.6 Family history of other diseases of the respiratory system; Z81.8 Family history of other mental and behavioral disorders; Z68.27 Body mass index [BMI] 27.0-27.9, adult

== ENCOUNTER → 2020-04-15 | Outpatient (CLI) | payer MEDICARE ==
[~2020-04-15] MED LIST changes: +ASPIRIN ADULT L81 M1 PO; +MIDODRINE HCL10 MG PO; +XARE20MG PO
== END | disposition home or self-care (01) ==
LOC: CT 16:00
PROVIDERS: ATTEND Nurse Practitioner Family
DX: J18.9 Pneumonia, unspecified organism (principal); Z86.16 Personal history of COVID-19

== ENCOUNTER 2020-08-23 10:45 | Emergency (ER) | payer MEDICARE ==
[~2020-08-23] VITALS: Ht 187.9 cm; Wt 99.8 kg
[2020-08-23 12:25] LABS: BASO % 0.7 % (0.0-1.0); EOS % 0.5 % (1.0-4.0); LYMPH # 1.5 10*3/uL (1.3-4.4); LYMPH % 34.9 % (27.0-41.0); MEAN CELL VOLUME 93.3 fl (80.0-94.0); MEAN CORPUSCULAR HGB 31.1 pg (27.0-31.0); MEAN CORPUSCULAR HGB CONC 33.3 g/dl (33.0-37.0); MEAN PLATELET VOLUME 9.7 fl (9.6-12.3); MONO # 0.6 10*3/uL (0.1-1.0); MONO % 13.2 % (3.0-9.0); NEUT # 2.2 10*3/uL (2.3-7.9); NEUT % 50.5 % (47.0-73.0); PLATELET COUNT AUTOMATED 199 10*3/uL (130-400); RED BLOOD COUNT 4.18 10*6/uL (4.50-5.90); RED CELL DISTRI WIDTH 13.8 % (0-14.5); WHITE BLOOD COUNT 4.4 10*3/uL (4.8-10.8)
[2020-08-23 12:42] LABS: ALBUMIN 3.1 gm/dl (3.1-4.5); ALKALINE PHOSPHATASE 65 U/L (45-117); BUN 9 mg/dl (7-24); CHLORIDE 105 mmol/L (98-107); POTASSIUM 4.1 mmol/L (3.5-5.1); SGOT/AST 34 IU/L (3-35); SGPT/ALT 56 U/L (12-78); SODIUM 139 mmol/L (136-145); TOTAL PROTEIN 6.3 gm/dL (6.4-8.2)
[2020-08-23 12:45] LABS: TROPONIN I < 0.015 ng/ml (<0.045)
[2020-08-23] MEDS ORDERED: PREDNISONE10 MG PO (16:24)
== END 2020-08-23 16:48 | disposition home or self-care (01) ==
LOC: ED 10:45
PROVIDERS: Physician Assistant
DX: R06.00 Dyspnea, unspecified (principal); Z20.822 Contact with and (suspected) exposure to COVID-19; Z79.899 Other long term (current) drug therapy

== ENCOUNTER → 2020-09-29 | Outpatient (CLI) | payer MEDICARE ==
[~2020-09-29] MED LIST changes: +PREDNISONE10 MG PO
== END | disposition home or self-care (01) ==
LOC: LAB 13:46
PROVIDERS: ATTEND Internal Medicine
DX: R06.02 Shortness of breath (principal); R07.9 Chest pain, unspecified; Z86.16 Personal history of COVID-19

== ENCOUNTER → 2021-03-02 | Outpatient (CLI) | payer MEDICARE ==
[~2021-03-02] MED LIST changes: +B COMPLEX1 EACH PO; +COLACE100 MG PO; +DAILY VALUE1 EACH PO; +FLUDROCORTISON0.1 MG PO; +HYDROCODONE-AC1 EAC1 PO; +LIPITOR80 MG PO; +OMEGA 3 1,0001 EACH PO; +PERCOCET 5-3251 EACH PO; +PROVENTIL HFA6.7 GM INH; +ZOFRAN4 MG PO
[2021-03-02 09:55] LABS: BASO % 0.4 % (0.0-1.0); EOS # 0.1 10*3/uL (0.0-0.4); EOS % 1.7 % (1.0-4.0); LYMPH # 3.7 10*3/uL (1.3-4.4); LYMPH % 53.6 % (27.0-41.0); MEAN CELL VOLUME 94.1 fl (80.0-94.0); MEAN CORPUSCULAR HGB 30.9 pg (27.0-31.0); MEAN CORPUSCULAR HGB CONC 32.8 g/dl (33.0-37.0); MONO # 0.5 10*3/uL (0.1-1.0); NEUT # 2.6 10*3/uL (2.3-7.9); NEUT % 37.2 % (47.0-73.0); PLATELET COUNT AUTOMATED 226 10*3/uL (130-400); RED BLOOD COUNT 4.57 10*6/uL (4.50-5.90); WHITE BLOOD COUNT 6.9 10*3/uL (4.8-10.8)
[2021-03-02 10:13] LABS: ALBUMIN 3.7 gm/dl (3.1-4.5); ALKALINE PHOSPHATASE 53 U/L (45-117); BUN 14 mg/dl (7-24); CHLORIDE 108 mmol/L (98-107); CHOLESTEROL 208 mg/dL (<200); CREATININE 1.22 mg/dL (0.70-1.30); LDL CHOLESTEROL 126 mg/dL (9-159); POTASSIUM 4.5 mmol/L (3.5-5.1); SGOT/AST 14 IU/L (3-35); SGPT/ALT 22 U/L (12-78); SODIUM 141 mmol/L (136-145); TOTAL PROTEIN 7.3 gm/dL (6.4-8.2); TRIGLYCERIDES 148 mg/dl (<150)
== END | disposition home or self-care (01) ==
LOC: LAB 09:14
PROVIDERS: Nurse Practitioner Family; ATTEND Thoracic Surgery (Cardiothoracic Vascular Surgery)
DX: Z13.29 Encounter for screening for other suspected endocrine disorder (principal); U09.9 Post COVID-19 condition, unspecified; K42.9 Umbilical hernia without obstruction or gangrene; I10 Essential (primary) hypertension; E55.9 Vitamin D deficiency, unspecified; I67.9 Cerebrovascular disease, unspecified; R07.89 Other chest pain; R79.0 Abnormal level of blood mineral; E67.1 Hypercarotenemia

== ENCOUNTER 2021-07-03 09:56 | Emergency (ER) | payer MEDICARE | END 2021-07-03 11:39 | disposition home or self-care (01) | LOC: ED 09:56 | DX: M25.462 Effusion, left knee (principal); M23.92 Unspecified internal derangement of left knee; Z79.899 Other long term (current) drug therapy; Z79.82 Long term (current) use of aspirin ==

== ENCOUNTER → 2021-07-18 | Day surgery (SDC) | payer MEDICARE ==
[~2021-07-18] VITALS: Ht 185.4 cm; Wt 95.3 kg
[~2021-07-18] MED LIST changes: +CRESTOR40 M1 PO
[2021-07-18 08:44] VITALS: BP 108/72
[2021-07-18 09:44] VITALS: BP 86/54
[2021-07-18 09:59] VITALS: BP 90/60
[2021-07-18 10:14] VITALS: BP 117/73
== END | disposition home or self-care (01) ==
LOC: SDC 07-14 11:00
PROVIDERS: ATTEND Surgery
DX: Z12.11 Encounter for screening for malignant neoplasm of colon (principal); K57.30 Diverticulosis of large intestine without perforation or abscess without bleeding; G43.909 Migraine, unspecified, not intractable, without status migrainosus; M10.9 Gout, unspecified; F43.10 Post-traumatic stress disorder, unspecified; E78.00 Pure hypercholesterolemia, unspecified; Z79.899 Other long term (current) drug therapy
CPT/HCPCS: 00812; G0121

== ENCOUNTER → 2021-08-17 | Outpatient (CLI) | payer MEDICARE | END | disposition home or self-care (01) | LOC: ORTHO 01:24 | PROVIDERS: ATTEND Orthopaedic Surgery | DX: M17.12 Unilateral primary osteoarthritis, left knee (principal) ==

== ENCOUNTER → 2021-11-11 | Outpatient (CLI) | payer MEDICARE ==
[2021-11-11 11:12] LABS: BASO # 0.1 10*3/uL (0.0-0.1); BASO % 0.8 % (0.0-1.0); EOS # 0.1 10*3/uL (0.0-0.4); EOS % 1.8 % (1.0-4.0); HEMATOCRIT 42.5 % (42.0-52.0); LYMPH # 2.9 10*3/uL (1.3-4.4); LYMPH % 47.1 % (27.0-41.0); MEAN CELL VOLUME 96.4 fl (80.0-94.0); MEAN CORPUSCULAR HGB 31.7 pg (27.0-31.0); MEAN CORPUSCULAR HGB CONC 32.9 g/dl (33.0-37.0); MEAN PLATELET VOLUME 9.4 fl (9.6-12.3); MONO # 0.5 10*3/uL (0.1-1.0); MONO % 7.7 % (3.0-9.0); NEUT # 2.6 10*3/uL (2.3-7.9); NEUT % 42.4 % (47.0-73.0); PLATELET COUNT AUTOMATED 221 10*3/uL (130-400); RED BLOOD COUNT 4.41 10*6/uL (4.50-5.90); WHITE BLOOD COUNT 6.2 10*3/uL (4.8-10.8)
[2021-11-11 11:30] LABS: ALKALINE PHOSPHATASE 48 U/L (45-117); BUN 18 mg/dl (7-24); CHLORIDE 110 mmol/L (98-107); CHOLESTEROL 239 mg/dL (<200); LDL CHOLESTEROL 163 mg/dL (9-159); POTASSIUM 4.5 mmol/L (3.5-5.1); SGOT/AST 14 IU/L (3-35); SGPT/ALT 27 U/L (12-78); SODIUM 143 mmol/L (136-145); TOTAL PROTEIN 6.9 gm/dL (6.4-8.2); TRIGLYCERIDES 60 mg/dl (<150)
== END | disposition home or self-care (01) ==
LOC: LAB 10:43
PROVIDERS: ATTEND Nurse Practitioner Family
DX: I10 Essential (primary) hypertension (principal); E78.5 Hyperlipidemia, unspecified; D64.9 Anemia, unspecified

== ENCOUNTER 2022-05-20 10:27 | Emergency (ER) | payer MEDICARE ==
[~2022-05-20] VITALS: Ht 187.9 cm; Wt 95.3 kg
[2022-05-20 11:04] LABS: BASO % 0.7 % (0.0-1.0); EOS # 0.1 10*3/uL (0.0-0.4); EOS % 1.7 % (1.0-4.0); HEMATOCRIT 37.5 % (42.0-52.0); LYMPH % 37.4 % (27.0-41.0); MEAN CELL VOLUME 96.4 fl (80.0-94.0); MEAN CORPUSCULAR HGB 32.1 pg (27.0-31.0); MEAN CORPUSCULAR HGB CONC 33.3 g/dl (33.0-37.0); MEAN PLATELET VOLUME 9.7 fl (9.6-12.3); MONO # 0.6 10*3/uL (0.1-1.0); MONO % 11.3 % (3.0-9.0); NEUT # 2.6 10*3/uL (2.3-7.9); NEUT % 48.5 % (47.0-73.0); PLATELET COUNT AUTOMATED 192 10*3/uL (130-400); RED BLOOD COUNT 3.89 10*6/uL (4.50-5.90); RED CELL DISTRI WIDTH 13.5 % (0-14.5); WHITE BLOOD COUNT 5.4 10*3/uL (4.8-10.8)
[2022-05-20 11:17] LABS: BUN 19 mg/dl (9-23); CHLORIDE 105 mmol/L (98-107); POTASSIUM 4.3 mmol/L (3.4-5.1)
== END 2022-05-20 13:11 | disposition home or self-care (01) ==
LOC: ED 10:27
PROVIDERS: Internal Medicine
DX: U07.1 COVID-19 (principal); Z98.890 Other specified postprocedural states

== ENCOUNTER → 2023-01-04 | Outpatient (CLI) | payer MEDICARE ==
[2023-01-04 14:41] LABS: BASO # 0.1 10*3/uL (0.0-0.1); BASO % 0.6 % (0.0-1.0); EOS # 0.2 10*3/uL (0.0-0.4); EOS % 1.9 % (1.0-4.0); LYMPH # 2.6 10*3/uL (1.3-4.4); LYMPH % 31.8 % (27.0-41.0); MEAN CELL VOLUME 96.1 fl (80.0-94.0); MEAN CORPUSCULAR HGB CONC 34.3 g/dl (33.0-37.0); MEAN PLATELET VOLUME 9.7 fl (9.6-12.3); MONO # 0.5 10*3/uL (0.1-1.0); MONO % 5.6 % (3.0-9.0); NEUT # 4.8 10*3/uL (2.3-7.9); NEUT % 59.9 % (47.0-73.0); PLATELET COUNT AUTOMATED 229 10*3/uL (130-400); RED BLOOD COUNT 4.37 10*6/uL (4.50-5.90); RED CELL DISTRI WIDTH 13.4 % (0-14.5); WHITE BLOOD COUNT 8.1 10*3/uL (4.8-10.8)
[2023-01-04 15:56] LABS: ALKALINE PHOSPHATASE 47 U/L (46-116); BUN 21 mg/dl (9-23); CHLORIDE 105 mmol/L (98-107); POTASSIUM 4.4 mmol/L (3.4-5.1); SGPT/ALT 20 U/L (5-49)
== END | disposition home or self-care (01) ==
LOC: LAB 14:18
PROVIDERS: ATTEND Nurse Practitioner Family
DX: J18.9 Pneumonia, unspecified organism (principal); R53.83 Other fatigue; R52 Pain, unspecified

== ENCOUNTER → 2023-08-21 | Outpatient (CLI) | payer MEDICARE ==
[2023-08-21 13:20] LABS: BASO # 0.1 10*3/uL (0.0-0.1); BASO % 0.6 % (0.0-1.0); EOS # 0.2 10*3/uL (0.0-0.4); EOS % 2.2 % (1.0-4.0); HEMATOCRIT 37.9 % (42.0-52.0); LYMPH # 2.8 10*3/uL (1.3-4.4); LYMPH % 34.2 % (27.0-41.0); MEAN CELL VOLUME 97.7 fl (80.0-94.0); MEAN CORPUSCULAR HGB 32.2 pg (27.0-31.0); MEAN PLATELET VOLUME 9.9 fl (9.6-12.3); MONO # 1.1 10*3/uL (0.1-1.0); NEUT % 49.6 % (47.0-73.0); PLATELET COUNT AUTOMATED 269 10*3/uL (130-400); RED BLOOD COUNT 3.88 10*6/uL (4.50-5.90); WHITE BLOOD COUNT 8.1 10*3/uL (4.8-10.8)
[2023-08-21 13:44] LABS: ALKALINE PHOSPHATASE 58 U/L (46-116); BUN 10 mg/dl (9-23); CHLORIDE 104 mmol/L (98-107); POTASSIUM 3.7 mmol/L (3.4-5.1); SGPT/ALT 16 U/L (5-49); TOTAL PROTEIN 6.7 gm/dL (6.0-8.0)
== END | disposition home or self-care (01) ==
LOC: LAB 12:41
PROVIDERS: ATTEND Nurse Practitioner Family
DX: U07.1 COVID-19 (principal)

== ENCOUNTER → 2024-01-18 | Outpatient (CLI) | payer MEDICARE ==
[2024-01-18 10:45] LABS: BASO # 0.1 10*3/uL (0.0-0.1); BASO % 0.9 % (0.0-1.0); EOS # 0.2 10*3/uL (0.0-0.4); HEMATOCRIT 40.7 % (42.0-52.0); MEAN CELL VOLUME 96.9 fl (80.0-94.0); MEAN CORPUSCULAR HGB 31.7 pg (27.0-31.0); MEAN CORPUSCULAR HGB CONC 32.7 g/dl (33.0-37.0); MEAN PLATELET VOLUME 9.5 fl (9.6-12.3); MONO # 0.5 10*3/uL (0.1-1.0); MONO % 8.4 % (3.0-9.0); NEUT # 2.3 10*3/uL (2.3-7.9); NEUT % 41.2 % (47.0-73.0); PLATELET COUNT AUTOMATED 225 10*3/uL (130-400); RED CELL DISTRI WIDTH 13.6 % (0-14.5); WHITE BLOOD COUNT 5.6 10*3/uL (4.8-10.8)
[2024-01-18 11:28] LABS: ALKALINE PHOSPHATASE 45 U/L (46-116); BUN 18 mg/dl (9-23); CHLORIDE 105 mmol/L (98-107); CHOLESTEROL 262 mg/dL (<200); LDL CHOLESTEROL 179 mg/dL (9-159); SGPT/ALT 20 U/L (5-49); TOTAL PROTEIN 7.1 gm/dL (6.0-8.0); TRIGLYCERIDES 105 mg/dl (<150)
== END | disposition home or self-care (01) ==
LOC: LAB 10:20
PROVIDERS: ATTEND Nurse Practitioner Family
DX: R68.89 Other general symptoms and signs (principal); I10 Essential (primary) hypertension; E78.00 Pure hypercholesterolemia, unspecified; K21.9 Gastro-esophageal reflux disease without esophagitis; E56.9 Vitamin deficiency, unspecified; Z79.899 Other long term (current) drug therapy; E55.9 Vitamin D deficiency, unspecified

== ENCOUNTER → 2024-03-04 | Outpatient (CLI) | payer MEDICARE ==
[2024-03-04 11:04] LABS: ALKALINE PHOSPHATASE 50 U/L (46-116); BUN 14 mg/dl (9-23); CHLORIDE 106 mmol/L (98-107); POTASSIUM 4.2 mmol/L (3.4-5.1); SGPT/ALT 17 U/L (5-49); TOTAL PROTEIN 6.3 gm/dL (6.0-8.0)
== END | disposition home or self-care (01) ==
LOC: LAB 09:51
PROVIDERS: ATTEND Orthopaedic Surgery
DX: M25.559 Pain in unspecified hip (principal)

== ENCOUNTER → 2024-10-29 | Outpatient (CLI) | payer MEDICARE ==
[2024-10-29 18:06] LABS: BASO # 0.1 10*3/uL (0.0-0.1); BASO % 1.0 % (0.0-1.0); EOS # 0.1 10*3/uL (0.0-0.4); EOS % 1.0 % (1.0-4.0); MEAN CELL VOLUME 100.8 fl (80.0-94.0); MEAN CORPUSCULAR HGB 32.6 pg (27.0-31.0); MEAN PLATELET VOLUME 10.2 fl (9.6-12.3); MONO # 0.5 10*3/uL (0.1-1.0); MONO % 8.6 % (3.0-9.0); NEUT # 2.8 10*3/uL (2.3-7.9); NEUT % 46.0 % (47.0-73.0); NUCLEATED RED BLOOD CELL 0.0 % (0.0-0.0); NUCLEATED RED BLOOD CELL 0.0 10*3/uL (0.0-0.0); PLATELET COUNT AUTOMATED 262 10*3/uL (130-400); RED CELL DISTRI WIDTH 13.5 % (0-14.5)
[2024-10-29 18:39] LABS: BUN 15 mg/dl (9-23); LDL CHOLESTEROL 167 mg/dL (9-159); SGPT/ALT 23 U/L (5-49); VITAMIN D, 25-HYDROXY 55.9 ng/mL (30-100)
== END | disposition home or self-care (01) ==
LOC: LAB 15:35
PROVIDERS: ATTEND Nurse Practitioner Family
DX: Z12.5 Encounter for screening for malignant neoplasm of prostate (principal); I10 Essential (primary) hypertension; E78.00 Pure hypercholesterolemia, unspecified; E55.9 Vitamin D deficiency, unspecified; Z76.89 Persons encountering health services in other specified circumstances

== ENCOUNTER → 2024-11-05 | Outpatient (CLI) | payer MEDICARE | LOC: CT 01:54 | PROVIDERS: ATTEND Nurse Practitioner Family | DX: I67.82 Cerebral ischemia (principal) ==